=== PATIENT | male | born 1995 | race Caucasian/White ===

== ENCOUNTER 2020-08-18 23:29 | Emergency (ER) | payer OTHER ==
[~2020-08-18] VITALS: Ht 180.3 cm; Wt 106.6 kg
[2020-08-18 23:33] VITALS: BP 144/85
[2020-08-18] MEDS ORDERED: FLUORESCEIN OPTH STRIP 1 MG OP ONE (23:40)
[2020-08-19] MEDS ORDERED: IBUP-2213 PO (00:15)
[2020-08-19 01:10] VITALS: BP 144/85
== END 2020-08-19 01:10 | disposition home or self-care (01) ==
LOC: MED 23:29
DX: T15.91XA Foreign body on external eye, part unspecified, right eye, initial encounter (principal); Z79.899 Other long term (current) drug therapy; Z98.890 Other specified postprocedural states; X58.XXXA Exposure to other specified factors, initial encounter
CPT/HCPCS: 65205; 99284

== ENCOUNTER 2021-05-18 12:32 | Emergency (ER) | payer OTHER ==
[~2021-05-18] VITALS: Ht 180.3 cm; Wt 104.3 kg
[~2021-05-18 12:32] MED LIST: IBUP-2213 PO
[2021-05-18 12:52] VITALS: BP 131/77
[2021-05-18] MEDS ORDERED: LIDOCAINE MPF 1% 10 MG/ML VIAL INJ ONE (13:45)
--- NOTE | 2021-05-18 13:53 | NUR ---
PT AMBULATED TO ER BED 6
--- NOTE | 2021-05-18 14:09 | NUR ---
PT LAC BEING SOAKED IN WARM WATER AND BETADINE AND LAC TRAY SET UP AT BED SIDE. ERMD NOTIFIED
[2021-05-18] MEDS ORDERED: BACITRACIN OINT 500 UNITS/GM PKT TP ONE ×2 (14:32→14:45)
[2021-05-18] MEDS ORDERED: CEPH-588 PO (14:36)
--- NOTE | 2021-05-18 14:42 | NUR ---
PT'S LAC CLEANED WITH NORMAL SALINE AND APPLIED BACITRACIN TO PT'S LACERATION AND DRESSED WITH NON-ADHERENT AND SPLINTED WITH 4" ALUMINUM FINGER SPLINT AND WRAPPED WITH 2" GUAZE ROLL. CMS WNL BEFORE AND AFTER. RN NOTIFIED.
--- NOTE | 2021-05-18 14:43 | NUR ---
Patient discharged with v/s stable. Written and verbal after care instructions given and explained. Patient alert, oriented and verbalized understanding of instructions. Ambulatory with steady gait. All questions addressed prior to discharge. ID band removed. Patient advised to follow up with PMD. Rx of CEPHALEXIN given. Opportunity to ask questions provided and answered.
--- NOTE | 2021-05-18 14:44 | NUR ---
The patient's care was reviewed and supervised by Chanel Teran RN.
== END 2021-05-18 14:44 | disposition home or self-care (01) ==
LOC: MED 12:32
DX: S61.211A Laceration without foreign body of left index finger without damage to nail, initial encounter (principal); Z98.890 Other specified postprocedural states; Z79.2 Long term (current) use of antibiotics; Z79.1 Long term (current) use of non-steroidal anti-inflammatories (NSAID); W31.2XXA Contact with powered woodworking and forming machines, initial encounter; Y92.096 Garden or yard of other non-institutional residence as the place of occurrence of the external cause; Y93.89 Activity, other specified; Y99.8 Other external cause status
CPT/HCPCS: 12001; 73140; 90471; 90715; 99283; J2001